=== PATIENT | male | born 1985 | race Caucasian/White ===

== ENCOUNTER 2019-01-25 12:12 | Emergency (ER) | payer OTHER ==
[~2019-01-25] VITALS: Ht 180.3 cm; Wt 81.7 kg
[~2019-01-25 12:12] MED LIST: ACETAMINOPHEN-1 EAC1 PO; AMOXICILLIN500 M1 PO; BACTRIM DS TAB1 EACH PO; KEFLEX500 MG PO; NAPROSYN500 MG PO; VICODIN 5-5001 EACH PO; VITAMIN B-1100 M1; VITAMIN D400 UNIT
[2019-01-25] MEDS ORDERED: NAPROSYN500 MG PO (12:28)
[2019-01-25] MEDS ORDERED: DOXYCYCLINE 10100 MG PO (12:29)
[2019-01-25] MEDS ORDERED: ACETAMINOPHEN-1 EAC1 PO (13:04)
[2019-01-25 13:15] VITALS: BP 130/88
== END 2019-01-25 13:19 | disposition home or self-care (01) ==
LOC: M.ERS 12:12
DX: L60.0 Ingrowing nail (principal); L03.032 Cellulitis of left toe

== ENCOUNTER 2019-07-09 16:09 | Emergency (ER) | payer OTHER ==
[~2019-07-09] VITALS: Ht 180.3 cm; Wt 81.7 kg
[~2019-07-09 16:09] MED LIST changes: +DOXYCYCLINE 10100 MG PO
[2019-07-09] MEDS ORDERED: TYLENOL WITH CO1 TA1 PO (17:01)
[2019-07-09 17:45] VITALS: BP 139/86
== END 2019-07-09 17:46 | disposition home or self-care (01) ==
LOC: M.ERS 16:09
DX: S60.051A Contusion of right little finger without damage to nail, initial encounter (principal); M20.011 Mallet finger of right finger(s); W50.2XXA Accidental twist by another person, initial encounter; Y93.89 Activity, other specified; Y92.89 Other specified places as the place of occurrence of the external cause; Y99.8 Other external cause status